=== PATIENT | female | born 1940 | race Caucasian/White ===

== ENCOUNTER → 2022-06-14 09:37 | Outpatient (CLI) | payer MEDICARE, OTHER, SELFPAY ==
[2022-06-14 10:19] LABS: COVID19 -Nasal RAPID Negative (Negative)
== END ==
PROVIDERS: PCP Family Medicine Geriatric Medicine; Referring Provider Student in an Organized Health Care Education/Training Program; Visit Provider Student in an Organized Health Care Education/Training Program
DX: J44.9 Chronic obstructive pulmonary disease, unspecified (principal)
CPT/HCPCS: 87635; C9803

== ENCOUNTER → 2022-06-14 09:40 | Outpatient (CLI) | payer MEDICARE, OTHER, SELFPAY ==
--- NOTE | 2022-06-20 11:31 | PM.PFT.1 ---
Pulmonary Function Test Referral & Results Date Patient Seen: 06/14/22 Requesting provider: Jayy Dorman Results: The spirometry demonstrates an FVC of 2.54 L which is 93% of predicted. The FEV1 was measured at 1.73 L which is 85% of predicted. The FEV1/FVC ratio was 68 which is 93% of predicted. Following the administration of bronchodilator there was a 28% improvement in FEF 25-75%. Lung volumes show an SVC of 2.58 L which is 92% of predicted. The diffusing capacity was measured at 15.29 which is 56% of predicted. No hemoglobin value was provided, so no correction for potential anemia could be made, if appropriate. The maximum voluntary ventilation was reduced Interpretation: This study demonstrates probably normal forced spirometry there is however evidence of improvement in small airway flow post bronchodilator as above Lung volumes also appear to be normal There is a [id number] reduction diffusing capacity suggesting disease at the capillary alveolar level In addition there is a mild reduction in maximum voluntary ventilation which in the absence of any significant abnormalities of spirometry suggest the possibility of neuromuscular disease Clinical correlation suggested
== END ==
PROVIDERS: PCP Family Medicine Geriatric Medicine; Referring Provider Student in an Organized Health Care Education/Training Program; Visit Provider Student in an Organized Health Care Education/Training Program
DX: J44.9 Chronic obstructive pulmonary disease, unspecified (principal); Z87.891 Personal history of nicotine dependence; Z20.822 Contact with and (suspected) exposure to COVID-19; J98.8 Other specified respiratory disorders
CPT/HCPCS: 87635; 94060; 94726; 94729; C9803

== ENCOUNTER → 2025-02-03 10:08 | Outpatient (CLI) | payer MEDICARE, OTHER, SELFPAY ==
--- NOTE | 2025-02-03 10:09 | DI.MG.S_ITS ---
MM diagnostic mammo BI, US breast LT limited: 02/03/2025 BI-RADS: 2 CLINICAL: 84-year old female for bilateral diagnostic mammogram and left diagnostic breast ultrasound. No Tyrer-Cuzick risk score calculation due to the patient's personal history of breast cancer. 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 Status-post bilateral lumpectomies. No first-degree family history of breast cancer. The patient reports pain (more than 2 years) in the left breast. PRIOR EXAMS Outside films 05/05/2024, 12/24/2023, 04/30/2023, 03/27/2022, 12/25/2021, 10/31/2021, 02/07/2021, 03/10/2019 and 02/17/2019. MAMMOGRAPHY TECHNIQUE: 2D and 3D (tomosynthesis) digital mammographic views obtained, with additional images as needed for full coverage. Current study was also evaluated with a Computer Aided Detection (CAD) system. ULTRASOUND TECHNIQUE TARGETED Left Breast Ultrasound: Real-time ultrasound exam was performed focused to area of clinical and/or imaging concern. DENSITY B. There are scattered areas of fibroglandular density. MAMMOGRAPHY FINDINGS Bilateral: Post-surgical changes are present. There are no suspicious masses, calcifications, or other findings in the breast. ULTRASOUND FINDINGS Left: Upper Outer Quadrant: There is no sonographic correlate for the symptom of pain. No suspicious sonographic finding present. IMPRESSION: * No evidence of malignancy with benign findings. RECOMMENDATIONS Bilateral * Annual screening mammography. OVERALL ASSESSMENT CATEGORY BI-RADS-2: Benign. The [employer] recommends annual screening mammography beginning at age 40 for women with average risk of breast cancer. ELECTRONICALLY SIGNED: Frank Damon M.D. on 02/03/2025 at 09:43:49 PM PT Interpreting Station ID: [id number]
== END ==
LOC: MAMMO 10:09
PROVIDERS: Referring Provider Internal Medicine; Visit Provider Internal Medicine
DX: C50.912 Malignant neoplasm of unspecified site of left female breast (principal); R22.32 Localized swelling, mass and lump, left upper limb; Z17.0 Estrogen receptor positive status [ER+]
CPT/HCPCS: 76642; 77066; G0279